=== PATIENT | male | born 1985 | race Asian ===

== ENCOUNTER 2018-08-08 02:26 | Inpatient (IN) | payer BC ==
[~2018-08-08] VITALS: Ht 165.1 cm; Wt 72.1 kg
[2018-08-08 02:29] VITALS: BP 130/77
--- NOTE | 2018-08-08 02:30 | NUR ---
TO BED # 6 AMBULATORY, REPORT GIVEN TO GLADYS HOPKINS.
--- NOTE | 2018-08-08 02:30 | NUR ---
BIB FAMILY. PT PRESENTS TO ED WITH FEELING OF PALPITATIONS IN CHEST WITHOUT PAIN. SOB PRESENT AT 16:00 ON 08/07/18. ALBUTEROL INH USED FOR SOB. UPON ED ARRIVAL PT STATES NO SOB BUT FEELING HE HEART BEATING HARD AND FAST. PT DENEIS SMOKING/ALCOHOL/DRUG USE AT THIS TIME. PT TACHYCARDIA AT 156. POSITIONED IN BED FOR COMFORT. A&OX4. ER MD AWARE. CONTINUE TO MONITOR.
[2018-08-08] MEDS ORDERED: NACL 0.9% 1,000 ML IV ONE (02:50)
[2018-08-08] MEDS ORDERED: DILTIAZEM 25 MG/5 ML VIAL IVP ONE (03:15)
[2018-08-08 03:24] LABS: ANION GAP 15.3 (8-16); CARBON DIOXIDE 26.2 mmol/L (21-32); CHLORIDE 103 mmol/L (98-107); CREATININE 1.2 mg/dL (0.7-1.3); GFR ARICAN-AMERICAN 91 mL/min (>90); GLUCOSE 105 mg/dL (74-106); POTASSIUM 3.5 mmol/L (3.5-5.1); SODIUM SERUM 141 mmol/L (136-145); UREA NITROGEN, BLOOD 22 mg/dL (7-18)
[2018-08-08 03:29] LABS: ALBUMIN 4.4 g/dL (3.4-5.0); ASPARTATE AMINOTRANSFERASE 29 U/L (15-37); TOTAL BILIRUBIN 0.5 mg/dL (0.0-1.0)
[2018-08-08 03:30] LABS: ACETAMINOPHEN < 0.5 ug/ml (10-30); SALICYLATE < 2.8 mg/dL (2.8-20.0)
--- NOTE | 2018-08-08 03:30 | NUR ---
PT IN BED RESTING WITH EYES OPEN. FIANCE AT BEDSIDE. CONTINUE TO MONITOR.
--- NOTE | 2018-08-08 03:59 | NUR ---
Dr. Pierce evaluating patient at bedside.
[2018-08-08 04:19] LABS: BASOPHILS # (AUTO) 0.1 K/uL (0.00-0.22); BASOPHILS % (AUTO) 0.5 % (0.0-2.0); EOSINOPHILS # (AUTO) 0.2 K/uL (0-0.4); EOSINOPHILS % (AUTO) 1.6 % (0.0-4.0); HEMATOCRIT 49.6 % (36-52); HEMOGLOBIN 16.6 g/dL (12.0-18.0); LYMPHOCYTES # (AUTO) 3.7 K/uL (2.0-11.5); LYMPHOCYTES % (AUTO) 32.7 % (20.5-51.1); MEAN CORPUSCULAR HEMOGLOBIN 29 pg (27-31); MEAN CORPUSCULAR HGB CONC 34 g/dL (33-37); MEAN CORPUSCULAR VOLUME 85.8 fL (80-94); MONOCYTES # (AUTO) 0.8 K/uL (0.8-1.0); NEUTROPHILS # (AUTO) 6.6 K/uL (1.8-7.7); NEUTROPHILS % (AUTO) 58.2 % (42.2-75.2); PLATELET COUNT (AUTO) 331 K/uL (140-450); RED BLOOD CELL COUNT(AUTO) 5.78 MIL/uL (4.20-6.10); RED CELL DISTRIBUTION WIDTH 12.4 % (11.6-13.7); WHITE BLOOD COUNT (AUTO) 11.3 K/uL (4.8-10.8)
[2018-08-08 04:24] LABS: BARBITURATE, URINE NEG. ng/ml (NEG <=200); BENZODIAZEPINE, URINE NEG. ng/mL (NEG <=200); CANNABINOID, URINE NEG. ng/mL (NEG <=50); COCAINE, URINE NEG. ng/mL (NEG <=300); OPIATE, URINE NEG. ng/mL (NEG <=2000); PHENCYCLIDINE SCREEN,URINE NEG. ng/mL (NEG <=25)
--- NOTE | 2018-08-08 04:30 | NUR ---
PT IN BED RESTING WITH EYES OPEN. FIANCE AT BEDSIDE. CONTINUE TO MONITOR.
[2018-08-08] MEDS ORDERED: ASPIRIN 81 MG TAB.CHEW PO ONE (05:30)
[2018-08-08] MEDS ORDERED: HYDROcodone/APAP 7.5/325 MG 1 TAB PO PRN (06:00)
[2018-08-08] MEDS ORDERED: ACETAMINOPHEN 325 MG TAB PO PRN (06:00)
[2018-08-08] MEDS ORDERED: DEXT 5% /NACL 0.9% 1,000 ML IV ONE (06:00)
[2018-08-08] MEDS ORDERED: DOCUSATE SODIUM 100 MG GELCAP PO PRN (06:00)
[2018-08-08] MEDS ORDERED: ONDANSETRON 4 MG/2 ML VIAL IM/IVP PRN (06:00)
--- NOTE | 2018-08-08 06:50 | NUR ---
REPORT GIVEN AND CARE TRANSFERED TO [facility] HOPK[facility] ROOM 112B. TRANSFERED VIA GURNEY WITH VSS. ACCOMPANIED BY PARENTS.
[2018-08-08 08:00] VITALS: BP 115/77
--- NOTE | 2018-08-08 08:00 | NUR ---
CHECKED ON PT. LYING ON HIS BED. TOOK HX FOR ADMISSION. NO SIGN OF DISTRESS NOTED. STARTED IVF ORDERED. CALL LIGHT WITHIN PT REACH. INFORMED HIM TO USE CALL LIGHT FOR ANY HELP. WILL CONTINUE MONITOR PT.
[2018-08-08] MEDS: NACL 0.9% 1,000 ML IV SCH (08:15)
[2018-08-08 08:44] LABS: PROTHROMBIN TIME 9.6 secs (10.8-13.4)
--- NOTE | 2018-08-08 08:48 | NUR ---
PATIENT HAS BEEN SCREENED AND CATEGORIZED MODERATE NUTRITION RISK. PATIENT WILL BE SEEN WITHIN 3-5 DAYS OF ADMISSION. 08/10/18 08/12/[address]
[2018-08-08 09:01] LABS: CHOL/HDL RATIO 5.1 (1-4.5); FREE T4 (FREE THYROXINE) 1.4 ng/dL (0.76-1.46); MAGNESIUM 2.2 mg/dL (1.8-2.4); PHOSPHORUS 4.9 mg/dL (2.5-4.9); THYROID STIMULATING HORMONE 2.25 uIU/mL (0.34-3.74)
[2018-08-08 12:00] VITALS: BP 115/78
--- NOTE | 2018-08-08 12:00 | NUR ---
CHECKED ON PT. SITTING ON HIS BED. COLLECTED URINE SAMPLE, SENT TO LAB. NO SIGN OF DISTRESS NOTED. PT DENIES ANY PAIN OR DISCOMFORT. FAMILY AT BEDSIDE. WILL CONTINUE TO MONITOR PT.
[2018-08-08 13:44] LABS: APPEARANCE,URINE CLEAR (CLEAR); BILIRUBIN,URINE NEGATIVE (NEGATIVE); BLOOD, URINE NEGATIVE (NEGATIVE); COLOR,URINE YELLOW (YELLOW); LEUKOCYTE ESTERASE ,URINE NEGATIVE (NEGATIVE); NITRITE, URINE NEGATIVE (NEGATIVE); PH,URINE 6.5 (5.0-9.0); UGLUCOSE NEGATIVE (NEGATIVE)
--- NOTE | 2018-08-08 15:00 | NUR ---
CHECKED ON PT. WENT TO RESTROOM. FAMILY AT BEDSIDE. NO SIGN OF DISTRESS NOTED. IVF INFUSING WELL. ASKING WHEN APPLIED BIOLOGY PROFESSOR WILL BE HERE. INFORMED HIM WILL LET KNOW SOON MD IS HERE. WILL CONTINUE TO MONITOR PT.
[2018-08-08 16:00] VITALS: BP 109/80
--- NOTE | 2018-08-08 17:07 | NUR ---
CHECKED ON PT. VS WITHIN NORMAL RANGE. INFORMED PT THAT DR LOPEZ WILL BE IN HOSPITAL AROUND 1800. VERBALIZED UNDERSTANDING. NO SIGN OF DISTRESS NOTED. FAMILY AT BEDSIDE. WILL CONTINUE TO MONITOR PT.
--- NOTE | 2018-08-08 18:19 | NUR ---
CHECKED ON PT. SEEN BY . ORDERED STAT TROPONIN ON PT. NO SIGN OF DISTRESS NOTED. PT DOING OK. WILL CONTINUE TO MONITOR PT.
--- NOTE | 2018-08-08 19:10 | NUR ---
RECEIVED REPORT FROM FELIBERTO RN DAYSHIFT NURSE AT BEDSIDE FOR CONTINUITY OF CARE, PT IN STABLE CONDITION.
--- NOTE | 2018-08-08 19:10 | NUR ---
ENDORSED PT TO PM NURSE AT BEDSIDE. PT IN STABLE CONDITION.
[2018-08-08 20:00] VITALS: BP 122/79
--- NOTE | 2018-08-08 20:15 | NUR ---
PT IN BED A0X4, HE IS AMBULATORY WITH SKIN IN TACT AND HAS AN 18G ON LAC RUNNING N/S AT 50. HE HAS NO C/O OF PAIN OR DISTRESS, LUNGS CLEAR AND RESPIRATIONS EVEN AND UNLABORED. V/S FOLLOWS T 98.2 P 73 R 18 B/P 122/79 02 96% WITH R/A, FIRALPHE AT BEDSIDE.
[2018-08-08] MEDS ORDERED: METOPROLOL SUCCINATE 50 MG TABER PO SCH (21:00)
--- NOTE | 2018-08-08 21:15 | NUR ---
PT GIVEN DUE MEDICATION OF TOPROL XL 12.5MG. MEDICATION EDUCATION PROVIDED. PT HAS NO C/O VOICED AND NO S/S OF PAIN OR DISTRESS NOTED. IV SITE FLUSHED PATENT AND RUNNING N/S ORDERED.
--- NOTE | 2018-08-08 22:45 | NUR ---
PT SLEEPING SOUNDLY IN BED, PT HAS NSR ON ORACLE FUSION DEVELOPER.
[2018-08-09] VITALS: BP 104/67
--- NOTE | 2018-08-09 00:30 | NUR ---
PT UP AND AMBULATED TO TOILET AND BACK INDEPENDENTLY. HE DENIES PAIN AT THIS TIME AND VITAL SIGNS FOLLOWS T 97.6 P 60 R 18 B/P 104/67 02 97% ON R/A.
[2018-08-09] MEDS: NACL 0.9% 1,000 ML IV SCH (03:04)
--- NOTE | 2018-08-09 03:45 | NUR ---
PT SLEEPING SOUNDLY NO S/S OF PAIN OR DISTRESS NOTED. V/S FOLLOWS T 97.8 P 70 R 18 B/P 109/68 02 96% ON R/A. IV SITE INTACT AND RUNNING N/S AT 50. BED LOW SIDE RAILS UP AND CALL KLEIN IN REACH.
[2018-08-09 04:00] VITALS: BP 109/68
[2018-08-09] MEDS ORDERED: METO50TE2 PO (06:26)
[2018-08-09] MEDS ORDERED: LOSA25TA1 PO (06:26)
--- NOTE | 2018-08-09 07:19 | NUR ---
RECEIVED REPORT FROM PM NURSE TA BEDSIDE. PT SLEEPING ON HIS BED. IVF INFUSING WELL. POSSIBLY DC TODAY. CALL LIGHT WITHIN PT REACH. WILL CONTINUE TO MONITOR PT.
--- NOTE | 2018-08-09 07:20 | NUR ---
ENDORSED CARE TO SITAL RN DAYSHIFT NURSE, PT IN STABLE CONDITION.
[2018-08-09 07:32] LABS: PHOSPHORUS 3.4 mg/dL (2.5-4.9)
[2018-08-09 07:34] LABS: CREATININE 0.9 mg/dL (0.7-1.3)
[2018-08-09 07:44] LABS: BASOPHILS % (AUTO) 0.6 % (0.0-2.0); EOSINOPHILS # (AUTO) 0.1 K/uL (0-0.4); EOSINOPHILS % (AUTO) 1.2 % (0.0-4.0); HEMATOCRIT 44.9 % (36-52); HEMOGLOBIN 15.2 g/dL (12.0-18.0); LYMPHOCYTES # (AUTO) 1.1 K/uL (2.0-11.5); LYMPHOCYTES % (AUTO) 19.7 % (20.5-51.1); MEAN CORPUSCULAR HEMOGLOBIN 29 pg (27-31); MEAN CORPUSCULAR HGB CONC 34 g/dL (33-37); MEAN CORPUSCULAR VOLUME 85.8 fL (80-94); MONOCYTES # (AUTO) 0.5 K/uL (0.8-1.0); MONOCYTES % (AUTO) 8.8 % (1.7-9.3); NEUTROPHILS % (AUTO) 69.7 % (42.2-75.2); PLATELET COUNT (AUTO) 257 K/uL (140-450); RED BLOOD CELL COUNT(AUTO) 5.24 MIL/uL (4.20-6.10); RED CELL DISTRIBUTION WIDTH 12.4 % (11.6-13.7); WHITE BLOOD COUNT (AUTO) 5.7 K/uL (4.8-10.8)
[2018-08-09 07:47] VITALS: BP 120/76
--- NOTE | 2018-08-09 08:42 | NUR ---
ADMINISTERED MEDS TO PT ORDERED. TOLERATED WELL. FAMILY AT BEDSIDE. NO SIGN OF DISTRESS NOTED. PT STATES RESIDENT TALKED TO HIM, WILL TALK TO PT PCP. WAITING ON PTS DC ORDER.WILL CONTINUE TO MONITOR PT.
[2018-08-09] MEDS ORDERED: LOSARTAN 25 MG TAB PO SCH (09:00)
--- NOTE | 2018-08-09 10:15 | NUR ---
PT WENT HOME WITH ALL HIS DC PRESCRIPTION AND PACKET. PT WITH FAMILY MEMBER. VERBALIZED UNDERSTANDING OF DC PLAN. PT TO FOLLOW UP WITH PCP, APPOINTMENT MADE BY RESIDENT. PT TOOK ALL HIS BELONGINGS AND STABLE AT TIME OF DISCHARGE.
== END 2018-08-09 10:15 | disposition home or self-care (01) | DRG 310 ==
LOC: MED 02:26 → MTU 06:00
PROVIDERS: ADMIT General Practice; ATTEND General Practice
DX: I47.1 Supraventricular tachycardia (principal); E78.2 Mixed hyperlipidemia; J45.909 Unspecified asthma, uncomplicated; Z83.3 Family history of diabetes mellitus; Z82.49 Family history of ischemic heart disease and other diseases of the circulatory system
CPT/HCPCS: 36415; 71045; 80048; 80053; 80305; 81003; 82150; 83036; 83690; 83735; 83880; 84100; 84436; 84439; 84443; 84479; 84484; 85025; 85610; 85730; 87081; 93005; 96360; 99285; G0480; G0482; J3490; J7030; J7042; Q0092